=== PATIENT | male | born 1950 | race Caucasian/White ===

== ENCOUNTER 2018-04-03 18:34 | Emergency (ER) | payer MEDICARE ==
[2018-04-03 19:20] LABS: BASOPHILS 0.9 % (0-2); HEMATOCRIT 46.9 % (42.0-54.0); HEMOGLOBIN 16.3 g/dL (13.5-17.5); MCH 32.7 pg (26.0-34.0); MCHC 34.8 g/dL (31.0-37.0); MEAN PLATELET VOLUME 9.5 fL (7.4-10.4); MONOCYTES 8.1 % (2-11); PLATELET COUNT 128 10x3/uL (130-400); RBC 4.99 10x6/uL (4.20-6.10); RDW 12.6 % (11.5-14.5); WBC 8.2 10x3/uL (4.8-10.8)
[2018-04-03 19:48] LABS: ALBUMIN 3.5 g/dL (3.4-5.0); ANION GAP 14.4 mmol/L (8-16); BILIRUBIN - TOTAL 0.9 mg/dL (0.2-1.3); CALCIUM 9.8 mg/dL (8.5-10.1); CARBON DIOXIDE 22.8 mmol/L (21.0-32.0); CREATININE - SERUM 1.3 mg/dL (0.6-1.3); POTASSIUM - SERUM 4.2 mmol/L (3.5-5.1); PROTEIN - SERUM 8.7 g/dL (6.4-8.2)
[2018-04-03 20:17] LABS: APPEARANCE CLEAR (CLEAR); BILIRUBIN NEGATIVE (NEGATIVE); COLOR YELLOW (YELLOW); GLUCOSE 100 mg/dL (NEGATIVE); KETONE NEGATIVE (NEGATIVE); NITRITE NEGATIVE (NEGATIVE); PROTEIN TRACE mg/dL (NEGATIVE); SPECIFIC GRAVITY 1.015 (1.005-1.020); UROBILINOGEN NORMAL (NORMAL)
== END 2018-04-03 22:06 | disposition home or self-care (01) ==
LOC: D.ER 18:34
PROVIDERS: Family Medicine
DX: N20.1 Calculus of ureter (principal); N23 Unspecified renal colic; N39.0 Urinary tract infection, site not specified; I10 Essential (primary) hypertension; E11.9 Type 2 diabetes mellitus without complications

== ENCOUNTER 2020-05-24 20:51 | Inpatient (IN) | payer MEDICARE ==
[~2020-05-24] VITALS: Ht 170.2 cm; Wt 113.9 kg
[2020-05-24] MEDS ORDERED: METOPROLOL TART25 MG PO (21:02)
[2020-05-24 22:00] VITALS: BP 121/45
[2020-05-24 22:06] LABS: BILIRUBIN NEGATIVE (NEGATIVE); GLUCOSE NEGATIVE (NEGATIVE); KETONE SMALL mg/dL (NEGATIVE); NITRITE NEGATIVE (NEGATIVE); SPECIFIC GRAVITY 1.015 (1.005-1.020); UROBILINOGEN NORMAL (NORMAL)
[2020-05-24 22:07] LABS: RED CELLS - URINE 0-5 /hpf (0-5); WHITE CELLS - URINE OCC /hpf (NEGATIVE)
[2020-05-24 22:10] LABS: BASOPHILS 0.1 % (0-2); EOSINOPHILS 0.4 % (0-7); HEMATOCRIT 47.4 % (42.0-54.0); HEMOGLOBIN 15.9 g/dL (13.5-17.5); IMMATURE GRANULOCYTES 0.7 % (0-5); LYMPHOCYTES 6.8 % (15-50); MCH 31.6 pg (26.0-34.0); MCHC 33.5 g/dL (31.0-37.0); MCV 94.2 fL (80.0-100.0); MEAN PLATELET VOLUME 9.2 fL (7.4-10.4); MONOCYTES 12.5 % (2-11); NEUTROPHILS 79.5 % (40-80); PLATELET COUNT 102 10x3/uL (130-400); RBC 5.03 10x6/uL (4.20-6.10); RDW 14.3 % (11.5-14.5); WBC 9.8 10x3/uL (4.8-10.8)
[2020-05-24 22:19] LABS: ANION GAP 8.7 mmol/L (8-16); CALCIUM 8.4 mg/dL (8.5-10.1); CREATININE - SERUM 1.6 mg/dL (0.6-1.3); POTASSIUM - SERUM 4.7 mmol/L (3.5-5.1)
[2020-05-24 22:23] LABS: ALBUMIN 2.4 g/dL (3.4-5.0); BILIRUBIN - TOTAL 3.14 mg/dL (0.2-1.3); PROTEIN - SERUM 7.5 g/dL (6.4-8.2)
[2020-05-24 23:30] VITALS: BP 150/51
[2020-05-25] VITALS (8 sets, daily range): BP systolic 120–159; BP diastolic 33–64; Ht 170.2 cm; Wt 113.9 kg
[2020-05-25 04:37] LABS: INR 1.35 (0.85-1.17); PROTIME 16.5 SECONDS (11.6-15.0)
[2020-05-25 04:38] LABS: APTT 38.8 SECONDS (22.8-39.4)
--- NOTE | 2020-05-25 07:35 | NUR ---
ALERT AND ORIENTED. LUNGS CLEAR BILATERALLY. HEART SOUNDS S1 AND S2 HEARD IN ALL BERUMEN. BOWEL SOUNDS ACTIVE X 4. IV TO RIGHT AC PATENT WITHOUT REDNESS. DENIES NEEDS. BED LOW. CALL MOONEY AND PERSONAL ITEMS IN REACH. WILL CONTINUE TO MONITOR.
--- NOTE | 2020-05-25 08:17 | NUR ---
PATIENT ADMITTED TO ROOM 2238. ADMISSION COMPLETE. DENIES NEEDS. WILL CONTINUE TO MONITOR.
[2020-05-25 10:11] LABS: BASOPHILS 0 % (0-2); EOSINOPHILS 0.9 % (0-7); HEMATOCRIT 43.2 % (42.0-54.0); HEMOGLOBIN 14.3 g/dL (13.5-17.5); IMMATURE GRANULOCYTES 0.5 % (0-5); MCH 31.1 pg (26.0-34.0); MCHC 33.1 g/dL (31.0-37.0); MCV 93.9 fL (80.0-100.0); MEAN PLATELET VOLUME 9.2 fL (7.4-10.4); MONOCYTES 13.9 % (2-11); NEUTROPHILS 75.7 % (40-80); PLATELET COUNT 93 10x3/uL (130-400); RDW 14.4 % (11.5-14.5); WBC 7.9 10x3/uL (4.8-10.8)
[2020-05-25 10:22] LABS: ALBUMIN 2.1 g/dL (3.4-5.0); ANION GAP 12.4 mmol/L (8-16); BILIRUBIN - TOTAL 3.39 mg/dL (0.2-1.3); CALCIUM 7.7 mg/dL (8.5-10.1); CARBON DIOXIDE 25.5 mmol/L (21.0-32.0); CREATININE - SERUM 1.4 mg/dL (0.6-1.3); POTASSIUM - SERUM 4.9 mmol/L (3.5-5.1); PROTEIN - SERUM 5.9 g/dL (6.4-8.2)
[2020-05-25 10:49] LABS: PLATELET ESTIMATE DECREASED
--- NOTE | 2020-05-25 11:39 | NUR ---
RESTING IN BED. AT BEDSIDE. DENIES NEEDS. WILL CONTINUE TO MONITOR.
--- NOTE | 2020-05-25 23:47 | NUR ---
REC'D CHGE OF SHIFT WALKING ROUNDS,IN BED TALKING ON PHONE.ABDOMAN REMAINS DISTENDED FIRM BUT PALABLE.DENIED PAIN OR NAUSEA AT PRESENT TIME. WILL CONTINUE TO MONITOR FOR ANY CHGES AND FOLLOW CURRENT PLAN OF CARE
[2020-05-26] VITALS: BP 132/64
[2020-05-26 04:00] VITALS: BP 128/52
[2020-05-26 05:34] LABS: BASOPHILS 0 % (0-2); EOSINOPHILS 2.1 % (0-7); HEMATOCRIT 41.4 % (42.0-54.0); HEMOGLOBIN 13.7 g/dL (13.5-17.5); IMMATURE GRANULOCYTES 0.8 % (0-5); LYMPHOCYTES 10.3 % (15-50); MCH 31.1 pg (26.0-34.0); MCHC 33.1 g/dL (31.0-37.0); MCV 93.9 fL (80.0-100.0); MEAN PLATELET VOLUME 8.8 fL (7.4-10.4); MONOCYTES 15.3 % (2-11); NEUTROPHILS 71.5 % (40-80); PLATELET COUNT 84 10x3/uL (130-400); RBC 4.41 10x6/uL (4.20-6.10); RDW 14.4 % (11.5-14.5); WBC 6.1 10x3/uL (4.8-10.8)
[2020-05-26 05:59] LABS: ALBUMIN 1.9 g/dL (3.4-5.0); ANION GAP 10.5 mmol/L (8-16); BILIRUBIN - TOTAL 2.35 mg/dL (0.2-1.3); CALCIUM 7.9 mg/dL (8.5-10.1); CARBON DIOXIDE 27.7 mmol/L (21.0-32.0); CREATININE - SERUM 1.3 mg/dL (0.6-1.3); MAGNESIUM - SERUM 2.1 mg/dL (1.8-2.4); POTASSIUM - SERUM 4.2 mmol/L (3.5-5.1); PROTEIN - SERUM 6.4 g/dL (6.4-8.2)
--- NOTE | 2020-05-26 07:10 | NUR ---
REC'D IN WALKING ROUND AWAKE AND ALERT. RESP EVEN AND UNLABORED WITH NO DISTRESS NOTED. CAN EXPRESS NEEDS AND WANTS. DENEIS ANY PAIN OR DISCOMFORT AT THIS TIME. ASSESSMENT COMPLETED. C/L IN REACH AT BEDSIDE.
[2020-05-26 08:00] VITALS: BP 136/62
--- NOTE | 2020-05-26 11:40 | NUR ---
C/O ABD PAIN RATING 8/10 ON PAIN SCALE WAS MEDICATED WITH MORPHINE PER ORDERS. C/L IN REACH AT BEDSIDE.
[2020-05-26 11:51] VITALS: BP 133/63
--- NOTE | 2020-05-26 14:54 | NUR ---
C/O ABD PAIN RATING 8/10 ON PAIN SCALE. MEDICATED WITH ULTRAM PER ORDERS. C/L IN REACH AT BEDSIDE.
[2020-05-26 16:11] VITALS: BP 142/49
--- NOTE | 2020-05-26 19:55 | NUR ---
I have reviewed this patient and I concur with the Shift Assessment completed by the Licensed Practical Nurse today this shift.
[2020-05-26 20:00] VITALS: BP 145/61
--- NOTE | 2020-05-26 21:10 | NUR ---
REC'D CHGE OF SHIFT WALKING ROUNDS IN BED EYES CLOSED RESP DEEP AND EVEN.WILL CONTINUE TO MONITOR FOR ANY CHGES AND FOLLOW CURRENT PLAN OF CARE.
--- NOTE | 2020-05-27 06:49 | NUR ---
I have reviewed this patient and I concur with the Shift Assessment completed by the Licensed Practical Nurse today this shift.
[2020-05-27 07:13] LABS: BASOPHILS 0.2 % (0-2); EOSINOPHILS 3.8 % (0-7); HEMATOCRIT 39.2 % (42.0-54.0); HEMOGLOBIN 13.1 g/dL (13.5-17.5); IMMATURE GRANULOCYTES 1.1 % (0-5); LYMPHOCYTES 11.9 % (15-50); MCH 30.9 pg (26.0-34.0); MCHC 33.4 g/dL (31.0-37.0); MCV 92.5 fL (80.0-100.0); MEAN PLATELET VOLUME 8.9 fL (7.4-10.4); MONOCYTES 14.8 % (2-11); NEUTROPHILS 68.2 % (40-80); PLATELET COUNT 78 10x3/uL (130-400); RBC 4.24 10x6/uL (4.20-6.10); RDW 14.3 % (11.5-14.5); WBC 5.2 10x3/uL (4.8-10.8)
[2020-05-27 07:32] LABS: ALBUMIN 1.8 g/dL (3.4-5.0); ANION GAP 7.8 mmol/L (8-16); BILIRUBIN - TOTAL 2.19 mg/dL (0.2-1.3); CALCIUM 7.8 mg/dL (8.5-10.1); CARBON DIOXIDE 26.1 mmol/L (21.0-32.0); CREATININE - SERUM 1.2 mg/dL (0.6-1.3); MAGNESIUM - SERUM 2.1 mg/dL (1.8-2.4); POTASSIUM - SERUM 3.9 mmol/L (3.5-5.1); PROTEIN - SERUM 6.2 g/dL (6.4-8.2)
[2020-05-27 08:00] VITALS: BP 101/53
[2020-05-27 09:12] LABS: HEPATITIS C ANTIBODY 0.2 S/CO RAT (0.0-0.9)
--- NOTE | 2020-05-27 09:35 | MORECARE ---
CASE MANAGEMENT DISCHARGE SUMMARY PATIENT: ISABELLA SANCHEZ UNIT: [id number] ADM DATE: 05/25/20 AGE: 69 : 49 SEX: M ROOM/BED: D.2238 AUTHOR: YUNIEL,DOC PHYSICIAN: REFERRING PHYSICIAN: ABIGAIL MCGHEE MD DATE OF SERVICE: 05/27/20 Discharge Plan Patient Name: ISABELLA SANCHEZ Facility: [facility]:[place] : 1950 Planned Disposition: Anticipated Discharge Date: Discharge Date: Expected LOS: Initial Reviewer: [email or web address] Initial Review Date: 05/27/2020 Generated: 05/27/20 10:35 am Comments DCP- Discharge Planning Updated by [email or web address]: Trena Parish on 05/27/20 8:[address] Patient Name: ISABELLA SANCHEZ Admission Status: ER Accout number: [id number] Admission Date: 05-25-2020 : 1950 Admission Diagnosis: Attending: PATTI MCGHEE Current LOS: 2 Anticipated DC Date: Planned Disposition: Primary Insurance: [facility] [employer] Discharge Planning Comments: CM met with patient at bedside after explaining CM role and obtaining verbal consent. CM discussed availability / needs of home health, REHAB and medical equipment. PATIENT DENIES ANY DISCHARGE NEEDS. IMM SIGNED. FAMILY ON WAY TO ANTENNA RIGGER. Auctioneer Tobacco: Trena Parish DCPIA - Discharge Planning Initial Assessment Updated by [email or web address]: Trena Parish on 05/27/20 9:29 am * Is the patient Alert and Oriented? Yes * PCP [facility] * [facility] * Preadmission Environment Home with Family * ADLs Independent * Other Equipment CPAP * Community resources currently utilized None * Additional services required to return to the preadmission environment? No * Can the patient safely return to the preadmission environment? Yes * Has this patient been hospitalized within the prior 30 days at any hospital? No Coverage Notice Reviewer: [id number] - Trena Parish Notice Issued Date-Time: 05/27/2020 9:29 Notice Type: IM Discharge Notice Notice Delivered To: Patient Relationship to Patient: Event Marketing Intern Name: Delivery Method: HAND - Hand Delivered Franci Days: Prior Verbal Notification: Recipient Understood Notice: Yes Recipient Signature: Yes Med Rec Note Co-signed by Attending: Coverage Notice Comment: Patient Name: ISABELLA SANCHEZ Page [phone] at 0935 All edits/amendments must be made on the electronic document DICTATION DATE: 05/27/20934 SUBSTITUTE CROSSING GUARD: GRIS 05/27/20934 RPT#: [id number] DC DATE: STATUS: ADM IN [facility] [address] [place] [address] END OF REPORT
[2020-05-27 10:12] LABS: ANA REFLEX - DIRECT Negative (Negative)
--- NOTE | 2020-05-27 10:57 | NUR ---
DISCHARGE INSTRUCTIONS COMPLETE. PATIENT VERBALIZES UNDERSTANDING. IV REMOVED, CATH TIP INTACT. PATIENT AND FAMILY DENY ANY QUESTIONS. PATIENT LEFT UNIT VIA WHEELCHAIR.
--- NOTE | 2020-05-29 15:17 | MORECARE ---
CASE MANAGEMENT DISCHARGE SUMMARY PATIENT: ISABELLA SANCHEZ UNIT: [id number] ADM DATE: 05/25/20 AGE: 69 : 49 SEX: M ROOM/BED: D.2238 AUTHOR: YUNIELDOC PHYSICIAN: REFERRING PHYSICIAN: ABIGAIL MCGHEE MD DATE OF SERVICE: 05/29/20 Discharge Plan Patient Name: ISABELLA SANCHEZ Facility: [facility]:[place] : 1950 Planned Disposition: Anticipated Discharge Date: Discharge Date: 05/27/2020 Expected LOS: Initial Reviewer: [email or web address] Initial Review Date: 05/27/2020 Generated: 05/29/20 4:16 pm Comments DCP- Discharge Planning Updated by [email or web address]: Trena Parish on 05/27/20 8:[address] Patient Name: ISABELLA SANCHEZ Admission Status: ER Accout number: [id number] Admission Date: 05-25-2020 : 1950 Admission Diagnosis: Attending: PATTI MCGHEE Current LOS: 2 Anticipated DC Date: Planned Disposition: Primary Insurance: [facility] [employer] Discharge Planning Comments: CM met with patient at bedside after explaining CM role and obtaining verbal consent. CM discussed availability / needs of home health, REHAB and medical equipment. PATIENT DENIES ANY DISCHARGE NEEDS. IMM SIGNED. FAMILY ON WAY TO IMPROVEMENT LEADER. Home Hospice Rn: Trena Parish DCPIA - Discharge Planning Initial Assessment Updated by [email or web address]: Trena Parish on 05/27/20 9:29 am * Is the patient Alert and Oriented? Yes * PCP [facility] * [facility] * Preadmission Environment Home with Family * ADLs Independent * Other Equipment CPAP * Community resources currently utilized None * Additional services required to return to the preadmission environment? No * Can the patient safely return to the preadmission environment? Yes * Has this patient been hospitalized within the prior 30 days at any hospital? No Coverage Notice Reviewer: [id number] - Trena Parish Notice Issued Date-Time: 05/27/2020 9:29 Notice Type: IM Discharge Notice Notice Delivered To: Patient Relationship to Patient: Drug And Alcohol Counselor Name: Delivery Method: HAND - Hand Delivered Franci Days: Prior Verbal Notification: Recipient Understood Notice: Yes Recipient Signature: Yes Med Rec Note Co-signed by Attending: Coverage Notice Comment: Last DP export: 05/27/20 8:35 a Patient Name: ISABELLA SANCHEZ Page [phone] at 1517 All edits/amendments must be made on the electronic document DICTATION DATE: 05/29/206 TODDLER GUIDE: GRIS 05/29/206 RPT#: [id number] DC DATE:05/27/20 STATUS: DIS IN [facility] [address] [place] [address] END OF REPORT
[2020-05-30 19:08] LABS: MITOCHONDRIAL ANTIBODY <20.0 Units (0.0-20.0)
[2020-05-31 15:11] LABS: SMOOTH MUSCLE ABS (ACTIN) 9 Units (0-19)
== END 2020-05-27 11:10 | disposition home or self-care (01) | DRG 436 ==
LOC: D.ER 20:51 → D.MS 05-25 03:42
PROVIDERS: Emergency Medicine; Internal Medicine Gastroenterology; ADMIT Emergency Medicine; ATTEND Emergency Medicine
DX: C22.7 Other specified carcinomas of liver (principal); N17.9 Acute kidney failure, unspecified; E87.1 Hypo-osmolality and hyponatremia; K74.60 Unspecified cirrhosis of liver; D69.6 Thrombocytopenia, unspecified; I10 Essential (primary) hypertension

== ENCOUNTER 2020-08-04 10:00 | Inpatient (IN) | payer MEDICARE ==
[~2020-08-04] VITALS: Ht 170.2 cm; Wt 104.3 kg
[~2020-08-04 10:00] MED LIST: METOPROLOL TART25 MG PO
[2020-08-04] MEDS ORDERED: ALDACTONE25 MG PO (10:22)
[2020-08-04] MEDS ORDERED: LASIX40 MG PO (10:22)
[2020-08-04 10:53] LABS: BASOPHILS 1.1 % (0-2); EOSINOPHILS 3.3 % (0-7); HEMATOCRIT 43.6 % (42.0-54.0); HEMOGLOBIN 14.5 g/dL (13.5-17.5); IMMATURE GRANULOCYTES 0.4 % (0-5); LYMPHOCYTES 17.8 % (15-50); MCH 31.7 pg (26.0-34.0); MCHC 33.3 g/dL (31.0-37.0); MCV 95.4 fL (80.0-100.0); MEAN PLATELET VOLUME 9.1 fL (7.4-10.4); NEUTROPHILS 61.4 % (40-80); RBC 4.57 10x6/uL (4.20-6.10); RDW 16.2 % (11.5-14.5); WBC 5.4 10x3/uL (4.8-10.8)
[2020-08-04 11:11] LABS: CALC OSMOLALITY 275 mosm/kg (275-300); CALCIUM 8.8 mg/dL (8.5-10.1); CARBON DIOXIDE 28.3 mmol/L (21.0-32.0); CHLORIDE - SERUM 103 mmol/L (98-107); CREATININE - SERUM 1.4 mg/dL (0.6-1.3); GLUCOSE 108 mg/dL (74-106); PLATELET COUNT 97 10x3/uL (130-400); POTASSIUM - SERUM 3.8 mmol/L (3.5-5.1); SODIUM 136 mmol/L (136-145); UREA NITROGEN 22 mg/dL (7-18); eGFR NON AFRICAN AMERICAN 53 mL/min (90-120)
[2020-08-04 11:21] LABS: ALBUMIN 2.3 g/dL (3.4-5.0); ALKALINE PHOSPHATASE 156 U/L (30-120); ALT (SGPT) 55 U/L (10-68); AMYLASE - SERUM 65 U/L (25-115); BILIRUBIN - TOTAL 2.23 mg/dL (0.2-1.3); LIPASE 115 U/L (73-393); PROTEIN - SERUM 7.1 g/dL (6.4-8.2)
[2020-08-04 11:22] LABS: TROPONIN-I < 0.017 ng/mL (0.000-0.060)
[2020-08-04 11:41] LABS: PLATELET ESTIMATE DECREASED
[2020-08-04 12:27] LABS: APTT 32.7 SECONDS (22.8-39.4); INR 1.06 (0.85-1.17); PROTIME 13.7 SECONDS (11.6-15.0)
--- NOTE | 2020-08-04 15:22 | NUR ---
URINE SAMPLE OBTAINED AND SENT TO LAB
[2020-08-04 15:50] LABS: BILIRUBIN NEGATIVE (NEGATIVE); KETONE NEGATIVE (NEGATIVE); NITRITE NEGATIVE (NEGATIVE); UROBILINOGEN NORMAL mg/dL (< 2)
--- NOTE | 2020-08-04 17:25 | NUR ---
PT ARRIVED FROM ED VIA BED. NO ACUTE DISTRESS NOTED. AT BEDSIDE. BED IN LOWEST POSITION, LOCKED, SIDE RAILS UP X2. CALL LIGHT WITHIN REACH. NEEDS ANTICIPATED AND MET. WILL CONTINUE TO MONITOR
[2020-08-04 17:27] VITALS: BP 134/66; BMI 36.1
[2020-08-04 20:00] VITALS: BP 126/56
--- NOTE | 2020-08-04 20:30 | NUR ---
SUPINE IN BED, A&O X 4. ABDOMEN DISTENDED, BOWEL SOUNDS ACTIVE X 4. SOME DISCOMFORT AROUND [place] AREA REPORTED. NO CURRENT SOB. REPORTS USING CPAP AT HOME AT NIGHT. AMBULATES AD ROYCE, NO FURTHER NEEDS VOICED, CTM.
[2020-08-05] VITALS: BP 121/58
[2020-08-05 04:00] VITALS: BP 107/62
--- NOTE | 2020-08-05 04:13 | NUR ---
I have reviewed this patient and I concur with the Shift Assessment completed by the Licensed Practical Nurse today this shift.
[2020-08-05 06:28] LABS: BASOPHILS 1.2 % (0-2); EOSINOPHILS 4.2 % (0-7); HEMATOCRIT 42.7 % (42.0-54.0); HEMOGLOBIN 13.9 g/dL (13.5-17.5); IMMATURE GRANULOCYTES 0.6 % (0-5); LYMPHOCYTES 19.6 % (15-50); MCH 30.8 pg (26.0-34.0); MCHC 32.6 g/dL (31.0-37.0); MCV 94.5 fL (80.0-100.0); MEAN PLATELET VOLUME 8.8 fL (7.4-10.4); MONOCYTES 15.8 % (2-11); NEUTROPHILS 58.6 % (40-80); PLATELET COUNT 112 10x3/uL (130-400); RBC 4.52 10x6/uL (4.20-6.10); RDW 16.3 % (11.5-14.5)
[2020-08-05 06:50] LABS: ALBUMIN 2.1 g/dL (3.4-5.0); ANION GAP 11.7 mmol/L (8-16); BILIRUBIN - TOTAL 2.32 mg/dL (0.2-1.3); CALCIUM 8.5 mg/dL (8.5-10.1); CREATININE - SERUM 1.4 mg/dL (0.6-1.3); POTASSIUM - SERUM 3.7 mmol/L (3.5-5.1); PROTEIN - SERUM 7.2 g/dL (6.4-8.2)
--- NOTE | 2020-08-05 07:05 | NUR ---
A&O UP WALKING AROUND ROOM. NO C/O PAIN. NO S/S OF ACUTE DISTRESS NOTED. ABDOMEN DISTENDED. IV TO LEFT HAND, SL. SITE PATENT WITHOUT REDNESS OR SWELLING. DENIES ANY NEEDS AT THIS TIME. CALL LIGHT IN REACH. WILL CONTINUE TO MONITOR.
--- NOTE | 2020-08-05 07:24 | HP ---
PATIENT: ISABELLA SANCHEZ MEDICAL RECORD: [id number] ACCOUNT: [id number] LOCATION:D.MS [id number] : [birth year] ADMISSION DATE: 08/04/20 PCP: CARMINA MENESES MD HISTORY AND PHYSICAL EXAMINATION CHIEF COMPLAINT: Abdominal distention. HISTORY OF PRESENT ILLNESS: The patient is a 69-year-old male with history of LION-induced cirrhosis and hepatocellular carcinoma, followed by Dr. Meneses from hematology/oncology and Dr. Meek from interventional radiology. The patient had a TACE embolization in late May of this year and said he did not feel well after that. He was readmitted to the hospital early June, transaminases improved, and he was discharged home. He has been followed most recently every 2 weeks [address] Meneses' office and when last there, he developed increasing ascites and he states nurse practitioner placed him on Aldactone to help with his edema. He said he is not urinating very much and really has not helped much at all. He has had multiple TACE procedures but per Dr. Meneses' note has refused systemic chemotherapy. He came to the ED today with these symptoms and was noted to have increasing ascites and Dr. Lion felt the patient needed to be admitted for that reason. He has had some nausea, but no vomiting, poor urine output but denies any recent fever. PAST MEDICAL HISTORY: LION-induced cirrhosis; hepatocellular carcinoma, diagnosed a year ago; coronary artery disease, post coronary artery bypass grafting; history of sleep apnea; morbid obesity; hyperlipidemia; nicotine use; remote alcohol use, discontinued at age 29; Peyronie disease; AODM; polyarthritis; actinic keratoses. PAST SURGICAL HISTORY: PTCA, CABG times 3 vessels, rhinoplasty, liver biopsy. SOCIAL HISTORY: Smoked for 27 years, also uses snuff. Alcohol from age 16 to age 29. He is . He is a bauer. He says he was exposed to Agent Everly in the early 70s from [employer] defoliation attempts. FAMILY HISTORY: Father of cancer, "like I have." Mother , had diabetes. HOME MEDICATIONS: Metoprolol 25 mg a day, Aldactone 25 mg b.i.d., furosemide 40 mg b.i.d. ALLERGIES: HYDROCODONE, CAUSING HALLUCINOSIS. REVIEW OF SYSTEMS: CONSTITUTIONAL: No fever. He has been fatigued with poor appetite. HEENT: No recent visual change, sinus congestion, or sore throat. RESPIRATORY: Mild shortness of breath on exertion. Said he sleeps in the bed most times. If he stands, he has shortness of breath. GASTROINTESTINAL: Nausea without vomiting. He has loss of abdominal pressure and increasing distention recently. GENITOURINARY: He has trouble urinating, slow stream. ENDOCRINE: Denies polyuria, polydipsia, heat or cold intolerance. NEUROLOGIC: No history of stroke, TIA, vascular headaches, or memory loss. INTEGUMENT: No rash or itching. PSYCHIATRIC: Admits to mild depressed mood, but not suicidal. HISTORY AND PHYSICAL [id number] ISABELLA SANCHEZ PHYSICAL EXAMINATION: VITAL SIGNS: Temperature 97.2, pulse 74, respirations 18, blood pressure 135/69 with a sat of 96% on room air. GENERAL: Alert male in no acute distress. HEENT: His eyes are clear. Oropharynx unremarkable. NECK: Supple without bruits. CHEST: Fine crackles in the bases. No wheezes. HEART: Regular rate and rhythm. Healed sternotomy scars noted. ABDOMEN: Grossly distended with hypoactive bowel sounds, mildly tender in the epigastrium. No rebound. No petechiae appreciated. GENITOURINARY: Testes are down. EXTREMITIES: He has 1+ bipedal edema, but no gross peripheral edema. NEUROLOGICAL: Grossly intact. Gait was not tested. LABORATORY DATA: White count is 5000, H&H of 14 and 43, platelet count 97,000. Normal diff. Chemistry: BUN and creatinine are 22 and 1.4; glucose 108; bilirubin is 2.23; AST is 205, down from previous; alk phos elevated at 156. Troponin 0.007. INR 1.06. UA is pending. COVID test was not ordered. CT of the abdomen with IV contrast shows atelectasis in the left lung base, coronary arteriosclerosis is noted, paraesophageal varices, multifocal hepatic enhancing lesions compatible with malignancy and metastases, nodular cirrhotic configuration of the liver is noted, intrahepatic biliary duct dilatation noted, mild splenomegaly, portal hypertension, colonic diverticula, moderate ascites noted. ASSESSMENT: 1. Cirrhosis with hepatocellular carcinoma with ascites, symptomatic. 2. Morbid obesity. 3. CHRISTINA. 4. CAD, clinically stable. 5. Hyperlipidemia. 6. Hyperglycemia. PLAN: The patient will be admitted to observation. We will discuss with IR whether if an ascites to perform paracentesis as well as oncology consult with Dr. Meneses. NTS:[id number] Voice Confirmation ID: [id number] DOCUMENT ID: [id number] AUBREE PARRA MD at 0724 CC: [id number] DICTATION DATE: 08/04/20 1348 PATIENT CARE ASSISTANT: 08/04/20 1833 ADM IN [address] [place] [address]
[2020-08-05] MEDS ORDERED: ALDACTONE25 MG PO (07:34)
[2020-08-05] MEDS ORDERED: LASIX40 MG PO (07:34)
[2020-08-05 08:07] VITALS: BP 145/64
--- NOTE | 2020-08-05 09:33 | NUR ---
PATIENT TAKEN TO IR FOR PARACENTESIS VIA BED ACCOMPANIED BY STAFF
--- NOTE | 2020-08-05 10:30 | NUR ---
RECEIVED PATIENT FROM IR VIA BED. HAD PARACENTESIS DONE. DRESSING C/D/I. NO C/O PAIN. NO S/S OF ACUTE DISTRESS NOTED. VITALS STABLE AND WNL. DENIES ANY NEEDS AT THIS TIME. CALL LIGHT IN REACH. WILL CONTINUE TO MONITOR.
[2020-08-05 12:04] VITALS: BP 111/43
[2020-08-05 14:29] VITALS: Ht 170.2 cm; Wt 104.3 kg
--- NOTE | 2020-08-05 17:24 | NUR ---
DISCHARGED PATIENT HOME WITH . DISCONTINUED IV, CATHETER TIP INTACT. WENT OVER DISCHARGE INSTRUCTIONS WITH PATIENT AND SPOUSE, VERBALIZED UNDERSTANDING. EXPLAINED TO PATIENT/SPOUSE ABOUT NOT TAKING LASIX OR ALDACTONE UNTIL OK'D BY DR. DESHPANDE. MED WAS DC EARLY THIS AM, BUT ON LIST FOR MEDS TO FILL AT DC. PATIENT AND SPOUSE UNDERSTOOD. DENIES ANYTHING FURTHER.
== END 2020-08-05 17:26 | disposition home or self-care (01) | DRG 948 ==
LOC: D.ER 10:00 → D.EDHOLD 14:49 → D.MS 14:49
PROVIDERS: Family Medicine; Radiology Vascular & Interventional Radiology; ADMIT Family Medicine; ATTEND Family Medicine
PROC: 0W9G3ZZ Drainage of Peritoneal Cavity, Percutaneous Approach (ICD-10-PCS; principal; 2020-08-05 09:35)
DX: R18.8 Other ascites (principal); C22.7 Other specified carcinomas of liver; K74.60 Unspecified cirrhosis of liver

== ENCOUNTER → 2020-08-10 | Emergency (ER) | payer MEDICARE ==
[~2020-08-10] VITALS: Ht 170.2 cm; Wt 101.8 kg
[~2020-08-10] MED LIST changes: +ALDACTONE25 MG PO; +LASIX40 MG PO
[2020-08-10 10:02] VITALS: BP 143/73; Ht 170.2 cm; Wt 101.8 kg
[2020-08-10 11:15] LABS: BASOPHILS 0.5 % (0-2); EOSINOPHILS 2.1 % (0-7); HEMATOCRIT 42.1 % (42.0-54.0); HEMOGLOBIN 13.9 g/dL (13.5-17.5); IMMATURE GRANULOCYTES 0.3 % (0-5); LYMPHOCYTES 14.5 % (15-50); MCH 31.4 pg (26.0-34.0); MEAN PLATELET VOLUME 8.9 fL (7.4-10.4); MONOCYTES 14.2 % (2-11); NEUTROPHILS 68.4 % (40-80); PLATELET COUNT 108 10x3/uL (130-400); RBC 4.43 10x6/uL (4.20-6.10); RDW 16.1 % (11.5-14.5); WBC 5.8 10x3/uL (4.8-10.8)
[2020-08-10 11:22] LABS: BILIRUBIN NEGATIVE (NEGATIVE); KETONE NEGATIVE (NEGATIVE); NITRITE NEGATIVE (NEGATIVE)
[2020-08-10 11:23] LABS: WHITE CELLS - URINE 0-5 HPF (0-1)
[2020-08-10 11:24] LABS: BACTERIA FEW HPF (NONE SEEN)
[2020-08-10 11:25] LABS: CALC OSMOLALITY 274 mosm/kg (275-300); CALCIUM 8.4 mg/dL (8.5-10.1); CARBON DIOXIDE 30.4 mmol/L (21.0-32.0); CHLORIDE - SERUM 101 mmol/L (98-107); CREATININE - SERUM 1.6 mg/dL (0.6-1.3); GLUCOSE 127 mg/dL (74-106); POTASSIUM - SERUM 3.4 mmol/L (3.5-5.1); SODIUM 135 mmol/L (136-145); UREA NITROGEN 21 mg/dL (7-18); eGFR NON AFRICAN AMERICAN 46 mL/min (90-120)
[2020-08-10 11:34] LABS: ALBUMIN 2.1 g/dL (3.4-5.0); ALKALINE PHOSPHATASE 156 U/L (30-120); ALT (SGPT) 67 U/L (10-68); AMYLASE - SERUM 87 U/L (25-115); BILIRUBIN - TOTAL 2.38 mg/dL (0.2-1.3); LIPASE 259 U/L (73-393); PROTEIN - SERUM 7.2 g/dL (6.4-8.2)
[2020-08-10 11:36] LABS: TROPONIN-I < 0.017 ng/mL (0.000-0.060)
[2020-08-10 12:02] LABS: INR 1.03 (0.85-1.17); PROTIME 13.5 SECONDS (11.6-15.0)
== END ==
LOC: D.ER 09:56
PROVIDERS: Emergency Medicine
DX: R10.9 Unspecified abdominal pain (principal); R14.0 Abdominal distension (gaseous); I10 Essential (primary) hypertension; Z95.1 Presence of aortocoronary bypass graft; E11.9 Type 2 diabetes mellitus without complications; K76.0 Fatty (change of) liver, not elsewhere classified; K74.60 Unspecified cirrhosis of liver; C78.7 Secondary malignant neoplasm of liver and intrahepatic bile duct

== ENCOUNTER 2020-08-17 07:04 | Day surgery (SDC) | payer MEDICARE ==
[~2020-08-17] VITALS: Ht 170.2 cm; Wt 104.5 kg
[2020-08-17 07:49] LABS: BASOPHILS 0.6 % (0-2); EOSINOPHILS 2.2 % (0-7); HEMATOCRIT 40.5 % (42.0-54.0); HEMOGLOBIN 13.6 g/dL (13.5-17.5); IMMATURE GRANULOCYTES 0.4 % (0-5); LYMPHOCYTES 11.4 % (15-50); MCH 31.3 pg (26.0-34.0); MCHC 33.6 g/dL (31.0-37.0); MCV 93.3 fL (80.0-100.0); MEAN PLATELET VOLUME 8.8 fL (7.4-10.4); MONOCYTES 14.5 % (2-11); NEUTROPHILS 70.9 % (40-80); PLATELET COUNT 112 10x3/uL (130-400); RBC 4.34 10x6/uL (4.20-6.10); RDW 15.9 % (11.5-14.5); WBC 5.4 10x3/uL (4.8-10.8)
[2020-08-17 08:03] LABS: CALCIUM 8.8 mg/dL (8.5-10.1); CREATININE - SERUM 3.2 mg/dL (0.6-1.3)
[2020-08-17 08:07] LABS: INR 1.06 (0.85-1.17); PROTIME 13.8 SECONDS (11.6-15.0)
[2020-08-17 08:08] LABS: APTT 31.4 SECONDS (22.8-39.4)
[2020-08-17 08:44] VITALS: BP 116/54; Ht 170.2 cm; Wt 104.5 kg
[2020-08-17 09:14] LABS: ALBUMIN 2.1 g/dL (3.4-5.0); BILIRUBIN - DIRECT 1.25 mg/dL (0.00-0.30); BILIRUBIN - INDIRECT 0.9 mg/dL (0.00-1.00); BILIRUBIN - TOTAL 2.15 mg/dL (0.2-1.3); PROTEIN - SERUM 7.4 g/dL (6.4-8.2)
[2020-08-17 11:49] LABS: MACROPHAGES BF 49 %; NEUT - BF 12 %
== END 2020-08-17 11:45 | disposition home or self-care (01) ==
LOC: D.CT 07:04
PROVIDERS: General Practice; ATTEND Specialist
DX: R18.8 Other ascites (principal); I10 Essential (primary) hypertension; E78.5 Hyperlipidemia, unspecified; I25.10 Atherosclerotic heart disease of native coronary artery without angina pectoris; I48.91 Unspecified atrial fibrillation; K74.69 Other cirrhosis of liver

== ENCOUNTER 2020-08-24 06:43 | Day surgery (SDC) | payer MEDICARE ==
[~2020-08-24] VITALS: Ht 170.2 cm; Wt 101.8 kg
[2020-08-24 07:53] LABS: BASOPHILS 0.8 % (0-2); EOSINOPHILS 4.5 % (0-7); HEMATOCRIT 39.3 % (42.0-54.0); HEMOGLOBIN 13.1 g/dL (13.5-17.5); IMMATURE GRANULOCYTES 0.4 % (0-5); LYMPHOCYTES 15.6 % (15-50); MCH 31.6 pg (26.0-34.0); MCHC 33.3 g/dL (31.0-37.0); MCV 94.7 fL (80.0-100.0); MEAN PLATELET VOLUME 8.6 fL (7.4-10.4); MONOCYTES 17.2 % (2-11); NEUTROPHILS 61.5 % (40-80); PLATELET COUNT 111 10x3/uL (130-400); RBC 4.15 10x6/uL (4.20-6.10); RDW 16.4 % (11.5-14.5); WBC 4.9 10x3/uL (4.8-10.8)
[2020-08-24 07:59] LABS: ANION GAP 12.9 mmol/L (8-16); CALCIUM 8.7 mg/dL (8.5-10.1); CARBON DIOXIDE 22.7 mmol/L (21.0-32.0); CREATININE - SERUM 2.6 mg/dL (0.6-1.3); POTASSIUM - SERUM 4.6 mmol/L (3.5-5.1)
[2020-08-24 08:18] LABS: INR 1.09 (0.85-1.17)
[2020-08-24] MEDS ORDERED: XANAX0.25 MG PO (08:41)
[2020-08-24] MEDS ORDERED: IBUPROFEN200 MG PO (08:43)
[2020-08-24 08:44] VITALS: BP 122/58; Ht 170.2 cm; Wt 101.8 kg
[2020-08-24 08:46] LABS: BILIRUBIN - DIRECT 1.23 mg/dL (0.00-0.30); BILIRUBIN - INDIRECT 1.23 mg/dL (0.00-1.00); BILIRUBIN - TOTAL 2.46 mg/dL (0.2-1.3)
--- NOTE | 2020-08-24 16:14 | NUR ---
1325 IV DC'ED WITH CATH INTACT. NO BLEEDING @ SITE. DRESSING CDI. GETTING DRESSED WITH ASSISTANCE FROM . GRANT Barker 1340 DRESSED. [facility] MED REC, RTC APPT. & D/C INSTRUCTIONS. VOICED UNDERSTANDING. TO PRIVATE CAR PER WHEELCHAIR BY STAFF. HOME WITH MRS. SANCHEZ. Jignesh LUNDBERG R.N.
== END 2020-08-24 13:40 | disposition home or self-care (01) ==
LOC: D.CT 06:43
PROVIDERS: Specialist; ATTEND Internal Medicine Medical Oncology
DX: C22.0 Liver cell carcinoma (principal); R11.0 Nausea; R10.84 Generalized abdominal pain; R18.8 Other ascites; I10 Essential (primary) hypertension; R93.2 Abnormal findings on diagnostic imaging of liver and biliary tract; K74.60 Unspecified cirrhosis of liver; E11.9 Type 2 diabetes mellitus without complications; I25.10 Atherosclerotic heart disease of native coronary artery without angina pectoris; E78.5 Hyperlipidemia, unspecified